=== PATIENT | female | born 1990 | race Caucasian/White ===

== ENCOUNTER 2016-12-05 16:46 | Emergency (ER) | payer MEDICAID ==
[~2016-12-05] VITALS: Ht 157.5 cm; Wt 44.9 kg
[~2016-12-05 16:46] MED LIST: AMOXIL500 M1 PO; APAP/BUTALBITAL1 TA1 PO; BACTRIM DS 8001 TAB PO; CIPRO 500MG TA500 MG PO; DARVOCET-N 1001 EACH PO; FERROUS SULFAT325 M2 PO; FIORICET 325 MG1 TAB PO; FLEXERIL10 MG PO; FLINTSTONES1 CTB PO; IBU-8800 MG PO; IRON TABLETS325 MG PO; LORTAB 5/500 501 TAB PO; MACROBID 100MG100 MG PO; MACRODANTIN100 MG PO; MOTRIN 400MG.400 MG PO; MOTRIN 600MG.600 MG PO; MOTRIN400 MG PO; NOMEDS; PERCOCET 5/3251 EACH PO; RANITIDINE 150150 MG PO; TAMIFLU 75MG CA75 MG PO; TERAZOL 7 VAG C45 GM VG; VOLTAREN75 MG PO; ZANTAC 150150 MG
[2016-12-05 17:31] LABS: URINE BILIRUBIN - DIPSTICK NEGATIVE (NEG); URINE BLOOD NEGATIVE (NEG); UTC URINE PREGNANCY NEGATIVE (NEG)
--- NOTE | 2016-12-05 17:36 | Urgent Treatment Center Report ---
History of Present Issue Date/Time Seen by Provider 12/05/16 1709 Visit Reason Pt arrived:Walked Presenting Problem:PT STATES SHE HAS RLQ PAIN/SUPRAPUBIC PAIN FOR 2 DAYS. PT STATES IT FEELS LIKE CONTRACTIONS. SHES ALSO HAD LOOSE DIARRHEA. Location if Accident: Onset of symptoms date/time:/ or onset unknown for:MEDICAL HX UNKNOWN Have you (or family members/close friends) recently traveled outside the [place]? N If Yes, where/when: Have you had exposure to infectious disease within the past month? TB? Other? Specify: Patient state that she has had the diarrhea for 2 days now States that she has been having a cramping like feeling in her abdomen then about 5-10 minutes later she has to run to the bathroom and has loose stool State that she has the cramping and diarrhea now for several days State pain feels like a cramping/ contraction like pain that comes and goes states that when it occurs it is in the right lower quad area around her pubic area. ALLERGIES Coded Allergies: No Known Allergies (02/12/16) History Medical History General CAD? No Angina: No [place]: No Hypertension? No Hyperlipidemia? No CHF? No DVT? No PE? No COPD? No Asthma? No Anemia? No GERD? No Gastric ulcers? No GI Bleed? No Hernia? No Thyroid Problems? No Hypothyroidism? No CVA? No Seizures? No Diabetes? No Renal Insuffiency? No UTI? No Stones? No BPH? No GB Disease: No Nephritic Syndrome? No Asplenia? No Hepatitis? No Sickle Cell Disease? No Arthritis? No Migraines? No Cataracts? No Glaucoma? No MRSA? No HIV? No TB? No Anxiety? No Depression? Yes Cancer? No More? 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 Family History Family HX Diabetes No CAD Yes Hypertension Yes Hyperlipidemia Yes Cancer Yes TB No Social History Smoking Hx Smoker: Current Every Day Smoker Tobacco: Yes Type Cigarettes Packs/day < 1 Pack Alcohol Alcohol: No Review of Systems All Other Systems Reviewed and Negative Gastrointestinal abdominal pain, diarrhea, nausea, denies vomiting, other (cramping like pain) Physical Exam Vital Signs Vital Signs Date Time Temp Pulse Resp B/P Pulse O2 O2 Flow FiO2 Ox Delivery Rate 12/05 1701 98.0 68 18 115/85 100 General Appearance normal appearance, WD/WN, no apparent distress Ear, Nose, Throat mucous membranes moist Neck normal inspection, non-tender, supple Respiratory Status Yes: trachea midline, chest symmetrical. No: respiratory distress. Cardiovascular normal exam, regular rate/rhythm Gastrointestinal normal bowel sounds, normal exam, non tender, soft, no guarding , no rebound, complains of cramping/contraction like pain that comes and goes in her right lower abdomen, reports has to run to bathroom about 10 minutes after pain hits and has loose stools for 2 days, no signs of distress, denies blood in stools, denies radiation of pain denies mucous in stools Neurologic alert, normal exam, oriented x 3 Medical Decision Making LABS/Meds/Orders Pt receiving controlled substance in ED? No Results/Orders Laboratory Tests 12/05/161730: Urine Color YELLOW, Urine Appearance Clear, Urine pH 6.5, Ur Specific [place] 1.015, Urine Protein NEGATIVE, Urine Ketones NEGATIVE, Urine Blood NEGATIVE, Urine Nitrate NEGATIVE, Urine Bilirubin NEGATIVE, Urine Urobilinogen 0.2, Ur Leukocyte Esterase NEGATIVE, Urine Glucose NEGATIVE, Urine Test NEGATIVE Current Medication Orders Sig/Robbie Start time Last Medication Dose Route Stop Time Status Admin Dicyclomine HCl 10 MG ONCE ONE 12/05 173 DC 12/05 PO 12/05 1730 1735 Orders Procedure Date/time Status [facility] URINE 12/05 173 Complete [facility] URINE DIPSTICK 12/05 1730 Complete DIARRHEA PANEL, PCR 12/05 1716 Active Progress [facility] Progress Notes 1 Comment Spoke with patient about being transfered to ER due to complaint of abdominal pain and that she may need workup and ct and patient declined and did not want to go to ER because she didn't want to wait that long Informed ER physician about patient refusal to be transfered to ER [facility] Progress Notes 2 Date 12/05/16 Time [address] Shereen walker and he came to [facility] and seen patient. With assistance from me he performed abdominal exam. Minor discompfort in low pubic area and when palpated deep patient would pass gas. Dr Regan advised patient again that he could take her to the ER and due CT scan and patient declined transfer to ER states that she will try medications and if it gets worse she will come back Dr Sadek again gave patient verbal instructions that for the rest of today no food and only drink gatoraid and make sure she drinks several bottles tonight then tomorrow only eat rice and toast to allow stomach to rest and again asked her about being transfered to ER for further evaluation but still refused [facility] Progress Notes 3 Comment Patient state that bentyl helped with cramping, no longer having any pain and she feels much better, no diarrhea since arrival and unable to collect specimen, patient was given outpatient order and advised that when she collected stool she needed to bring it straight to lab Departure Departure Time of Disposition 1800 Disposition DC Home or Self Care(routine) Clinical Impression Primary Impression: Gastroenteritis Condition STABLE Referrals Family doctor Patient Instructions DI for Bacterial Gastroenteritis -- Adult, Diarrhea, DIET- DIARRHEA NUTRITION [facility], Viral Gastroenteritis Additional Instructions You was given an out patient order for diarrhea panel because you was unable to collect specimen while in the office today, please collect specimen at home and bring into the lab here at the hospital along with the order and follow up with family doctor for results Take medication as prescribed MetaMucil one teaspoon three times daily as advised in the UTC today by ER physician Today no food for remainder of day, only gatoraid, drink gatoraid for the rest of the day. This will allow your stomach time to rest and help to keep you hydrated Tomorrow you may start eating [place] and rice. [place] and rice will help to absorb the water in your colon and aid in helping to control the diarrhea Discharge Counseling Counseled pt/family regarding diagnosis, test results, medications/RX, home care, follow up needs Prescriptions Current Visit Scripts Metronidazole (Flagyl 250MG) 250 MG PO TID #21 TAB CIPROFLOXACIN HCL (Cipro 250MG TAB) 250 MG PO BID #14 TAB Dicyclomine Hcl (Bentyl 10MG) 10 MG PO Q8 PRN cramping #30 CAP Loperamide HCl (Imodium A-D) 2 MG PO Q6HP PRN diarrhea #8 CAPSULE at 1830
--- NOTE | 2016-12-05 17:36 | Urgent Treatment Center Report ---
History of Present Issue Date/Time Seen by Provider 12/05/16 1709 Visit Reason Pt arrived:Walked Presenting Problem:PT STATES SHE HAS RLQ PAIN/SUPRAPUBIC PAIN FOR 2 DAYS. PT STATES IT FEELS LIKE CONTRACTIONS. SHES ALSO HAD LOOSE DIARRHEA. Location if Accident: Onset of symptoms date/time:/ or onset unknown for:MEDICAL HX UNKNOWN Have you (or family members/close friends) recently traveled outside the [place]? N If Yes, where/when: Have you had exposure to infectious disease within the past month? TB? Other? Specify: Patient state that she has had the diarrhea for 2 days now States that she has been having a cramping like feeling in her abdomen then about 5-10 minutes later she has to run to the bathroom and has loose stool State that she has the cramping and diarrhea now for several days State pain feels like a cramping/ contraction like pain that comes and goes states that when it occurs it is in the right lower quad area around her pubic area. ALLERGIES Coded Allergies: No Known Allergies (02/12/16) History Medical History General CAD? No Angina: No [place]: No Hypertension? No Hyperlipidemia? No CHF? No DVT? No PE? No COPD? No Asthma? No Anemia? No GERD? No Gastric ulcers? No GI Bleed? No Hernia? No Thyroid Problems? No Hypothyroidism? No CVA? No Seizures? No Diabetes? No Renal Insuffiency? No UTI? No Stones? No BPH? No GB Disease: No Nephritic Syndrome? No Asplenia? No Hepatitis? No Sickle Cell Disease? No Arthritis? No Migraines? No Cataracts? No Glaucoma? No MRSA? No HIV? No TB? No Anxiety? No Depression? Yes Cancer? No More? 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 Family History Family HX Diabetes No CAD Yes Hypertension Yes Hyperlipidemia Yes Cancer Yes TB No Social History Smoking Hx Smoker: Current Every Day Smoker Tobacco: Yes Type Cigarettes Packs/day < 1 Pack Alcohol Alcohol: No Review of Systems All Other Systems Reviewed and Negative Gastrointestinal abdominal pain, diarrhea, nausea, denies vomiting, other (cramping like pain) Physical Exam Vital Signs Vital Signs Date Time Temp Pulse Resp B/P Pulse O2 O2 Flow FiO2 Ox Delivery Rate 12/05 1701 98.0 68 18 115/85 100 General Appearance normal appearance, WD/WN, no apparent distress Ear, Nose, Throat mucous membranes moist Neck normal inspection, non-tender, supple Respiratory Status Yes: trachea midline, chest symmetrical. No: respiratory distress. Cardiovascular normal exam, regular rate/rhythm Gastrointestinal normal bowel sounds, normal exam, non tender, soft, no guarding , no rebound, complains of cramping/contraction like pain that comes and goes in her right lower abdomen, reports has to run to bathroom about 10 minutes after pain hits and has loose stools for 2 days, no signs of distress, denies blood in stools, denies radiation of pain denies mucous in stools Neurologic alert, normal exam, oriented x 3 Medical Decision Making LABS/Meds/Orders Pt receiving controlled substance in ED? No Results/Orders Laboratory Tests 12/05/161730: Urine Color YELLOW, Urine Appearance Clear, Urine pH 6.5, Ur Specific [place] 1.015, Urine Protein NEGATIVE, Urine Ketones NEGATIVE, Urine Blood NEGATIVE, Urine Nitrate NEGATIVE, Urine Bilirubin NEGATIVE, Urine Urobilinogen 0.2, Ur Leukocyte Esterase NEGATIVE, Urine Glucose NEGATIVE, Urine Test NEGATIVE Current Medication Orders Sig/Robbie Start time Last Medication Dose Route Stop Time Status Admin Dicyclomine HCl 10 MG ONCE ONE 12/05 173 DC 12/05 PO 12/05 1730 1735 Orders Procedure Date/time Status [facility] URINE 12/05 173 Complete [facility] URINE DIPSTICK 12/05 1730 Complete DIARRHEA PANEL, PCR 12/05 1716 Active Progress [facility] Progress Notes 1 Comment Spoke with patient about being transfered to ER due to complaint of abdominal pain and that she may need workup and ct and patient declined and did not want to go to ER because she didn't want to wait that long Informed ER physician about patient refusal to be transfered to ER [facility] Progress Notes 2 Date 12/05/16 Time [address] Shereen walker and he came to [facility] and seen patient. With assistance from me he performed abdominal exam. Minor discompfort in low pubic area and when palpated deep patient would pass gas. Dr Regan advised patient again that he could take her to the ER and due CT scan and patient declined transfer to ER states that she will try medications and if it gets worse she will come back Dr Sadek again gave patient verbal instructions that for the rest of today no food and only drink gatoraid and make sure she drinks several bottles tonight then tomorrow only eat rice and toast to allow stomach to rest and again asked her about being transfered to ER for further evaluation but still refused [facility] Progress Notes 3 Comment Patient state that bentyl helped with cramping, no longer having any pain and she feels much better, no diarrhea since arrival and unable to collect specimen, patient was given outpatient order and advised that when she collected stool she needed to bring it straight to lab Departure Departure Time of Disposition 1800 Disposition DC Home or Self Care(routine) Clinical Impression Primary Impression: Gastroenteritis Condition STABLE Referrals Family doctor Patient Instructions DI for Bacterial Gastroenteritis -- Adult, Diarrhea, DIET- DIARRHEA NUTRITION [facility], Viral Gastroenteritis Additional Instructions You was given an out patient order for diarrhea panel because you was unable to collect specimen while in the office today, please collect specimen at home and bring into the lab here at the hospital along with the order and follow up with family doctor for results Take medication as prescribed MetaMucil one teaspoon three times daily as advised in the UTC today by ER physician Today no food for remainder of day, only gatoraid, drink gatoraid for the rest of the day. This will allow your stomach time to rest and help to keep you hydrated Tomorrow you may start eating [place] and rice. [place] and rice will help to absorb the water in your colon and aid in helping to control the diarrhea Discharge Counseling Counseled pt/family regarding diagnosis, test results, medications/RX, home care, follow up needs Prescriptions Current Visit Scripts Metronidazole (Flagyl 250MG) 250 MG PO TID #21 TAB CIPROFLOXACIN HCL (Cipro 250MG TAB) 250 MG PO BID #14 TAB Dicyclomine Hcl (Bentyl 10MG) 10 MG PO Q8 PRN cramping #30 CAP Loperamide HCl (Imodium A-D) 2 MG PO Q6HP PRN diarrhea #8 CAPSULE at 1830
[2016-12-05] MEDS ORDERED: FLAGYL 250MG.250 MG PO (18:12)
[2016-12-05] MEDS ORDERED: CIPRO 250MG TA250 MG PO (18:12)
[2016-12-05] MEDS ORDERED: IMODIUM A-D2 M3 PO (18:19)
[2016-12-05] MEDS ORDERED: BENTYL10 MG PO (18:19)
[2016-12-05 18:27] VITALS: BP 115/85
--- OUTSIDE RECORDS SUMMARY | 2016-12-07 17:48 | External Medical Summary Rpt | CCD ---
Demographics Preferred Language Malaysian Marital Status Unknown Shinto Affiliation Unknown Race Unknown Ethnic Group Unknown Author Author , KANDACE JERONIMO Address Unknown Phone Immunization No patient found.
--- OUTSIDE RECORDS SUMMARY | 2016-12-07 17:48 | External Medical Summary Rpt | CCD ---
Author Author [employer] Address Unknown Phone Unavailable Purpose Continuity of Care Document - through 2016
--- OUTSIDE RECORDS SUMMARY | 2016-12-07 17:48 | External Medical Summary Rpt ---
Author Author KANDACE Santos, K[employer]ACE [employer] Organization [employer] Address Unknown Phone Unavailable
--- OUTSIDE RECORDS SUMMARY | 2016-12-07 17:48 | External Medical Summary Rpt | CCD ---
Author Author , KANDACE JERONIMO Address Unknown Phone [email or web address] Care Team Providers Care Roving Or Yarn Color Checker Name Role Phone Erlinda Krishnamurthy MD, Unavailable Unavailable Erlinda Krishnamurthy MD Purpose Continuity of Care Document - 08-26-2012 through 2016 Problems Code Diagnosis DOS Provider Status 305.1 305.1 01-13-2013 [place] TOBACCO USE [facility] 789.01 789.01 01-13-2013 [place] ABDOMINAL [facility] PAIN, RIGHT [facility] UPPER QUADRANT 789.02 789.02 08-26-2012 [place] ABDOMINAL [facility] PAIN, LEFT [facility] UPPER QUADRANT Allergies, Adverse Reactions, Alerts Type Allergy to substance Drug Allergy Adverse Reaction to Substance Substance Reaction Severity INGREDIENT: NO KNOWN Unknown Unknown - NO KNOWN DRUG ALLERGY No Known Allergies - Unknown Unknown Nka Medications Na ND Rx Da Fi Fi Am Da Di Ph RX Ph St me C No te ll ll ou ys ag ar # ys at rm s nt no ma ic us Or Da si cy ia de te s n re d Sa 63 11 0 No li 80 -2 ne 70 0- Lo 10 20 ng Fl 07 13 er us 5 h Ac 10 ti ML ve Sy ri ng e KE 00 11 0 No TO 40 -2 RO 93 0- Lo LA 79 20 ng C 50 13 er 30 1 Ac MG ti /M ve L AL Sa 63 07 0 No li 80 -0 ne 70 3- Lo 10 20 ng Fl 07 13 er us 5 h Ac 10 ti ML ve Sy ri ng e KE 00 07 0 No TO 40 -0 RO 93 3- Lo LA 79 20 ng C 50 13 er 30 1 Ac MG ti /M ve L AL AC 51 07 0 No ET 07 -0 AM 90 3- Lo IN 16 20 ng OP 19 13 er HE 9H N Ac W/ ti CO ve DE IN E #3 TA K Vital Signs 01-13-2013 11:01 Name Value Interpretat Reference Comment ion Range BP 59 mm[Hg] Diastolic BP Systolic 109 mm[Hg] Heart 64 /min Rate/Pulse O2% 97 % Respiratory 18 /min Rate 01-13-2013 10:38 Name Value Interpretat Reference Comment ion Range BP 56 mm[Hg] Diastolic BP Systolic 107 mm[Hg] Heart 61 /min Rate/Pulse O2% 97 % Respiratory 18 /min Rate 08-26-2012 20:43 Name Value Interpretat Reference Comment ion Range Body 97.9 [degF] Temperature BP 48 mm[Hg] Diastolic BP Systolic 116 mm[Hg] Heart 60 /min Rate/Pulse O2% 99 % Respiratory 18 /min Rate 08-26-2012 18:50 Name Value Interpretat Reference Comment ion Range BP 51 mm[Hg] Diastolic BP Systolic 111 mm[Hg] Heart 69 /min Rate/Pulse O2% 97 % Respiratory 20 /min Rate Results Labs Lab Lab Date Result Refere Interp Status Commen Order Detail nces retati t Range on COMPREHENSIVE METABOLIC PANEL (01-13-2013 09:00) Glucose 01-13-2 75 74-106 complet 013 mg/dL ed Bld-mCn 09:00 c BUN 01-13-2 7 mg/dL 7-18 complet Bld-mCn 013 ed c 09:00 Creat 01-13-2 0.7 0.6-1.0 complet SerPl-m 013 mg/dL ed Cnc 09:00 ESTIMAT 20-2 89 50-200 complet ED 013 ML/MIN ed CREATIN 09:00 INE CLEARAN CE GFR 01-13-2 106 59- complet (ESTIMA 013 ML/MIN ed MICHEAL) 09:00 Sodium 01-13-2 140 136-145 complet SerPl-s 013 mmoL/L ed Cnc 09:00 Potassi 01-13-2 3.9 3.5-5.1 complet um 013 mmoL/L ed SerPl-s 09:00 Cnc Chlorid 01-13-2 105 98-107 complet e 013 mmoL/L ed SerPl-s 09:00 Cnc CO2 20-2 28 21.0-32 complet SerPl-s 013 mmoL/L .0 ed Cnc 09:00 Calcium 01-13-2 8.7 8.5-10. complet 013 mg/dL 1 ed SerPl-m 09:00 Cnc Prot 11-20-2 7.7 6.4-8.2 complet SerPl-m 013 gm/dL ed Cnc 09:00 Albumin 11-20-2 4.1 3.4-5.0 complet 013 gm/dL ed SerPl-m 09:00 Cnc Globuli 11-20-2 3.6 1.3-3.2 complet n 013 gm/dL ed Ser-mCn 09:00 c Albumin 11-20-2 1.1 UNK 1.1-1.8 complet /Glob 013 ed SerPl-m 09:00 Rto Bilirub 11-20-2 0.8 0.2-1.0 complet 013 mg/dL ed SerPl-m 09:00 Cnc AST 11-20-2 11 U/L 15-37 complet SerPl-c 013 ed Cnc 09:00 ALT 11-20-2 24 U/L 30-65 complet SerPl-c 013 ed Cnc 09:00 ALP 11-20-2 102 U/L 50-136 complet SerPl-c 013 ed Cnc 09:00 Amylase SerPl-cCnc (01-13-2013 09:00) Amylase 11-20-2 95 U/L 25-115 complet 013 ed SerPl-c 09:00 Cnc LIPASE (01-13-2013 09:00) LIPASE 11-20-2 166 U/L 73-393 complet 013 ed 09:00 CBC with AUTO DIFF (01-13-2013 09:00) WBC # 11-20-2 12.1 4.8-10. complet Bld 013 K/MM3 8 ed Auto 09:00 RBC # 11-20-2 5.05 4.2-5.4 complet Bld 013 M/mm3 ed Auto 09:00 Hgb 11-20-2 15.4 12.2-16 complet Bld-mCn 013 g/dL .2 ed c 09:00 Hct Fr 20-2 46.0 % 37.0-47 complet Bld 013 .0 ed 09:00 MCV RBC 11-20-2 91.2 fl 82.2-97 complet 013 .8 ed 09:00 MCH RBC 11-20-2 30.4 pg 27-31.2 complet Qn 013 ed Auto 09:00 MEAN 11-20-2 33.4 31.8-35 complet CORPUSC 013 g/dl .4 ed ULAR 09:00 HGB CONC RDW RBC 11-20-2 14.0 % 11.5-17 complet Auto 013 .5 ed 09:00 Platele 11-20-2 303 142-424 complet t Bld 013 K/mm3 ed Ql 09:00 Manual MEAN 11-20-2 7.4 fl 7.4-10. complet PLATELE 013 4 ed T 09:00 VOLUME Granulo 11-20-2 61.1 % 37.0-80 complet cytes 013 .0 ed Fr Bld 09:00 Auto LYMPH % 11-20-2 28.0 % 10-50.0 complet 013 ed 09:00 Monocyt 11-20-2 3.9 % 1.7-9.3 complet es Fr 013 ed Bld 09:00 Auto Eosinop 11-20-2 6.3 % 0.1-12. complet hil Fr 013 0 ed Bld 09:00 Auto Basophi 11-20-2 0.7 % 0.1-2.0 complet ls Fr 013 ed Bld 09:00 Auto Granulo 11-20-2 7.4 1.8-7.8 complet cytes # 013 K/mm3 ed Bld 09:00 Auto Lymphoc 11-20-2 3.4 0.7-4.5 complet ytes Fr 013 K/mm3 ed Bld 09:00 Auto Monocyt 11-20-2 0.5 0.1-1.0 complet es # 013 K/mm3 ed Bld 09:00 Auto Eosinop 11-20-2 0.8 0.0-0.4 complet hil # 013 K/mm3 ed Bld 09:00 Auto Basophi 11-20-2 0.1 0-0.2 complet ls # 013 K/MM3 ed Bld 09:00 Auto B-HCG Ur Ql (01-13-2013 08:45) B-HCG 11-20-2 NEGATIV NEG complet Ur Ql 013 E ed 08:45 URINALYSIS/COMPLETE (01-13-2013 08:45) URINE 11-20-2 YELLOW YELLOW complet COLOR 013 ed 08:45 URINE 11-20-2 SL CLEAR complet APPEARA 013 CLOUDY ed NCE 08:45 URINE 11-20-2 NEGATIV NEG complet GLUCOSE 013 E ed - 08:45 DIPSTIC K URINE 11-20-2 NEGATIV NEG complet BILIRUB 013 E ed IN - 08:45 DIPSTIC K URINE 11-20-2 NEGATIV NEG complet KETONE 013 E mg/dL ed 08:45 URINE 11-20-2 1.020 1.005-1 complet SPECIFI 013 UNK .030 ed C 08:45 GRAVITY URINE 11-20-2 NEGATIV NEG complet BLOOD 013 E ed 08:45 URINE 11-20-2 6.5 UNK 5.0-8.5 complet PH 013 ed 08:45 URINE 11-20-2 NEGATIV NEG complet PROTEIN 013 E mg/dL ed - 08:45 DIPSTIC K URINE 11-20-2 0.2 NEG complet UROBILI 013 E.U./dL ed NOGEN - 08:45 DIPSTIC K URINE 11-20-2 NEGATIV NEG complet NITRATE 013 E ed - 08:45 DIPSTIC K URINE 11-20-2 NEGATIV NEG complet LEUK 013 E ed ESTERAS 08:45 E URINE 11-20-2 OCC 0 complet RBC 013 rbc/hpf ed 08:45 URINE 11-20-2 3-5 O complet WBC 013 wbc/hpf ed 08:45 URINE 11-20-2 5-10 0-5 complet SQUAMOU 013 #/hpf ed S CELLS 08:45 COMPREHENSIVE METABOLIC PANEL (08-26-2012 18:45) Glucose 85 74-106 complet 013 mg/dL ed Bld-mCn 18:45 c BUN 10 7-18 complet Bld-mCn 013 mg/dL ed c 18:45 Creat 1.0 0.6-1.0 complet SerPl-m 013 mg/dL ed Cnc 18:45 ESTIMAT 59 50-200 complet ED 013 ML/MIN ed CREATIN 18:45 INE CLEARAN CE GFR 70 59- complet (ESTIMA 013 ML/MIN ed MICHEAL) 18:45 Sodium 138 136-145 complet SerPl-s 013 mmoL/L ed Cnc 18:45 Potassi 3.7 3.5-5.1 complet um 013 mmoL/L ed SerPl-s 18:45 Cnc Chlorid 102 98-107 complet e 013 mmoL/L ed SerPl-s 18:45 Cnc CO2 07-03-2 29 21.0-32 complet SerPl-s 013 mmoL/L .0 ed Cnc 18:45 Calcium 07-03-2 9.4 8.5-10. complet 013 mg/dL 1 ed SerPl-m 18:45 Cnc Prot 07-03-2 8.4 6.4-8.2 complet SerPl-m 013 gm/dL ed Cnc 18:45 Albumin 07-03-2 4.7 3.4-5.0 complet 013 gm/dL ed SerPl-m 18:45 Cnc Globuli 03-2 3.7 1.3-3.2 complet n 013 gm/dL ed Ser-mCn 18:45 c Albumin 07-03-2 1.3 UNK 1.1-1.8 complet /Glob 013 ed SerPl-m 18:45 Rto Bilirub 08-26-2 1.0 0.2-1.0 complet 013 mg/dL ed SerPl-m 18:45 Cnc AST 0703-2 7 U/L 15-37 complet SerPl-c 013 ed Cnc 18:45 ALT 07-03-2 29 U/L 30-65 complet SerPl-c 013 ed Cnc 18:45 ALP 07-03-2 116 U/L 50-136 complet SerPl-c 013 ed Cnc 18:45 CBC with AUTO DIFF (08-26-2012 18:45) WBC # 07-03-2 11.7 4.8-10. complet Bld 013 K/MM3 8 ed Auto 18:45 RBC # 07-03-2 5.47 4.2-5.4 complet Bld 013 M/mm3 ed Auto 18:45 Hgb 07-03-2 16.3 12.2-16 complet Bld-mCn 013 g/dL .2 ed c 18:45 Hct Fr 0703-2 49.3 % 37.0-47 complet Bld 013 .0 ed 18:45 MCV RBC 07-03-2 90.2 fl 82.2-97 complet 013 .8 ed 18:45 MCH RBC 07-03-2 29.9 pg 27-31.2 complet Qn 013 ed Auto 18:45 MEAN 07-03-2 33.1 31.8-35 complet CORPUSC 013 g/dl .4 ed ULAR 18:45 HGB CONC RDW RBC -03-2 13.2 % 11.5-17 complet Auto 013 .5 ed 18:45 Platele 07-03-2 331 142-424 complet t Bld 013 K/mm3 ed Ql 18:45 Manual MEAN 07-03-2 7.5 fl 7.4-10. complet PLATELE 013 4 ed T 18:45 VOLUME Granulo 07-03-2 54.8 % 37.0-80 complet cytes 013 .0 ed Fr Bld 18:45 Auto LYMPH % 07-03-2 35.7 % 10-50.0 complet 013 ed 18:45 Monocyt 07-03-2 2.9 % 1.7-9.3 complet es Fr 013 ed Bld 18:45 Auto Eosinop 07-03-2 5.6 % 0.1-12. complet hil Fr 013 0 ed Bld 18:45 Auto Basophi 07-03-2 0.9 % 0.1-2.0 complet ls Fr 013 ed Bld 18:45 Auto Granulo 07-03-2 6.4 1.8-7.8 complet cytes # 013 K/mm3 ed Bld 18:45 Auto Lymphoc 07-03-2 4.2 0.7-4.5 complet ytes Fr 013 K/mm3 ed Bld 18:45 Auto Monocyt 07-03-2 0.3 0.1-1.0 complet es # 013 K/mm3 ed Bld 18:45 Auto Eosinop 07-03-2 0.7 0.0-0.4 complet hil # 013 K/mm3 ed Bld 18:45 Auto Basophi 07-03-2 0.1 0-0.2 complet ls # 013 K/MM3 ed Bld 18:45 Auto B-HCG Ur Ql (08-26-2012 18:30) B-HCG -03-2 NEGATIV NEG complet Ur Ql 013 E ed 18:30 URINALYSIS/COMPLETE (08-26-2012 18:30) URINE 08-26-2 YELLOW YELLOW complet COLOR 013 ed 18:30 URINE 08-26-2 CLEAR CLEAR complet APPEARA 013 ed NCE 18:30 URINE 08-26-2 NEGATIV NEG complet GLUCOSE 013 E ed - 18:30 DIPSTIC K URINE 08-26-2 NEGATIV NEG complet BILIRUB 013 E ed IN - 18:30 DIPSTIC K URINE 07-03-2 NEGATIV NEG complet KETONE 013 E mg/dL ed 18:30 URINE 2 1.025 1.005-1 complet SPECIFI 013 UNK .030 ed C 18:30 GRAVITY URINE NEGATIV NEG complet BLOOD 013 E ed 18:30 URINE 2 6.0 UNK 5.0-8.5 complet PH 013 ed 18:30 URINE NEGATIV NEG complet PROTEIN 013 E mg/dL ed - 18:30 DIPSTIC K URINE 2 1.0 NEG complet UROBILI 013 E.U./dL ed NOGEN - 18:30 DIPSTIC K URINE NEGATIV NEG complet NITRATE 013 E ed - 18:30 DIPSTIC K URINE NEGATIV NEG complet LEUK 013 E ed ESTERAS 18:30 E URINE OCC 0 complet RBC 013 rbc/hpf ed 18:30 URINE 3-5 O complet WBC 013 wbc/hpf ed 18:30 URINE TNTC 0-5 complet SQUAMOU 013 #/hpf ed S CELLS 18:30 URINE 08-26-2 1+ O complet BACTERI 013 ed A 18:30 Encounters Encounter Start End Date Code Location Performer Type Date Emergency KYA Krishnamurthy MD (ER) 3 09:02 3 11:02 [facility] Emergency KYA Krishnamurthy MD (ER) 3 18:47 3 20:56 [facility]
--- OUTSIDE RECORDS SUMMARY | 2016-12-07 17:48 | External Medical Summary Rpt | CCD ---
Demographics Preferred Language Moldovan Marital Status Unknown Sikh Affiliation Unknown Race Unknown Ethnic Group Unknown Author Author , KANDACE JERONIMO Address Unknown Phone Immunization No patient found.
--- OUTSIDE RECORDS SUMMARY | 2016-12-07 17:48 | External Medical Summary Rpt | CCD ---
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 Name Role Phone Erlinda Krishnamurthy MD, Unavailable Unavailable Erlinda Krishnamurthy MD Purpose Continuity of Care Document - 08-26-2012 through 2016 Problems Code Diagnosis DOS Provider Status 305.1 305.1 01-13-2013 [place] TOBACCO USE [facility] 789.01 789.01 01-13-2013 [place] ABDOMINAL [facility] PAIN, RIGHT [facility] UPPER QUADRANT 789.02 789.02 08-26-2012 [place] ABDOMINAL [facility] PAIN, LEFT [facility] UPPER QUADRANT Allergies, Adverse Reactions, [...] Krishnamurthy MD (ER) 3 09:02 3 11:02 [facility] Emergency KYA Krishnamurthy MD (ER) 3 18:47 3 20:56 [facility]
== END 2016-12-05 18:27 | disposition home or self-care (01) ==
LOC: UTC 16:46
PROVIDERS: Nurse Practitioner
DX: A08.4 Viral intestinal infection, unspecified (principal); F17.210 Nicotine dependence, cigarettes, uncomplicated